=== PATIENT | male | born 1960 | race Caucasian/White ===

== ENCOUNTER 2016-10-16 05:46 | Inpatient (IN) | payer OTHER, MEDICARE ==
[2016-10-16] MEDS ORDERED: MORPHINE 4 MG/ML INJECTION IV ONE (06:26)
[2016-10-16] MEDS ORDERED: ONDANSETRON HCL 4 MG/2 ML VIAL IV ONE ×2 (06:26→08:03)
[2016-10-16] MEDS ORDERED: NS 1,000 ML IV ONE (06:27)
--- NOTE | 2016-10-16 06:37 | EDPRACDOC ---
- General Information Information Source: Patient Mode of Arrival: Car - History of Present Illness Onset: FEW DAYS HPI: PT SAID THAT HE HAS BEEN HAVING BACK AND ABD PAIN. HE HAS HAD SOME HEMATURIA WELL. HIS PCP TOLD HIM THAT HE PROBABLY HAS A KIDNEY STONE. PT SAID THAT HE HAS NOT HAD A CT. PT WOKE UP THIS AM WITH CP WELL. PT HAS A HX OF CAD WITH STENT AND THIS CP FEELS SIMILAR. PT HAS N/V TODAY, BUT WAS ABLE TO KEEP DOWN AN ASA. LOW RISK STRESS TEST APRIL 2016. Chest Pain Location: Reports: Substernal Pain Radiation: Reports: None Symptoms Occur: Reports: Suddenly Cardiac History of: Reports: Similar Pain in Past, [place], Cardiac Cath, Stent PE Risk Factors: Reports: None Medications within 24 Hours: Reports: Aspirin Prehospital Care: Reports: None Pain Status: Present Now Pain Description: Reports: Pressure Pain Severity: Mild Pain Worsens With: Reports: Nothing Associated Signs and Symptoms: Reports: Nausea, Vomiting <Yolanda Kaminski - Last Filed: 10/16/16 07:01> <Shannon Dawkins - Last Filed: 10/16/16 12:29> - General Information Stated Complaint: BACK PAIN/ UPPER LEFT RIB CAGE PAIN Time Seen by Provider: 10/16/16 06:15 Home Medications: Home Medications Aspirin [Aspirin EC] 81 mg PO QAM 10/16/16 Buspirone HCl [Buspar] 30 mg PO BID PRN 10/16/16 Clopidogrel Bisulfate [Plavix] 75 mg PO DAILY 10/16/16 Dexlansoprazole [Dexilant] 60 mg PO DAILY 10/16/16 Oxycodone (OxyCONTIN) Ext Rel [Oxycontin] 20 mg PO Q12H 10/16/16 Allergies/Adverse Reactions: Allergies Allergy/AdvReac Type Severity Reaction Status Date / Time ciprofloxacin [From Cipro] Allergy Intermediate Nausea only Verified 10/16/16 07 :02 ciprofloxacin HCl Allergy Intermediate Nausea only Verified 10/16/16 07:02 [From Cipro] Iodinated Contrast Media - Allergy Intermediate Nausea/Vomi Verified 10/16/16 07 :02 IV Dye ting [IV Dye, Iodine Containing Contrast ] iodine [Iodine] Allergy Intermediate Nausea/Vomi Verified 10/16/16 07:02 ting Penicillins Allergy Intermediate Rash-Genera Verified 10/16/16 07:02 lized lorazepam [From Ativan] Allergy Unknown/See Verified 10/16/16 07:02 Comments ED Past Medical History - Patient Medical History Cardiac History: Reports: Coronary Artery Disease, Hypertension, Cardiac Catheterization Respiratory History: Reports: COPD, Emphysema GI/ History: Reports: Gastroesophageal Reflux Surgical History: Reports: Cardiac Catheterization, Other (HERNIA REPAIR WITH MESH, RELEASE OF SBO) - Family Medical History Reports: Cancer - Social Medical History Smoking Status: Heavy tobacco smoker (5 or more cigarettes/day or daily pipe/ cigar) ETOH: None Substance Abuse: None Lives With: Spouse Lives In: Home <Yolanda Kaminski - Last Filed: 10/16/16 07:01> EDM Review of Systems - Review of Systems ROS Negative Except as Marked: Yes All systems reviewed and were negative except as marked Cardiovascular: Chest Pain Gastrointestinal: Nausea, Pain, Vomiting Genitourinary: Hematuria, Flank Pain <Yolanda Kaminski - Last Filed: 10/16/16 07:01> - Physical Exam Constitutional: Alert (Awake), No apparent distress Oriented to: Time, Person, Place Last recorded Vital Signs: Oxygen Pulse Oxygen Saturation O2 Device Oxygen Flow Rate Fraction of Inspired Oxygen ( FIO2) - HEENT Head: Normal ( normocephalic) Eye Exam: Normal (PERRL, EOMI, Sclera white) Oropharynx: Normal (Pharynx:Moist without exudate,Gums-no swelling) ENT EAC: Normal TMJ: Normal Nose: No Symptoms Reported (septum midline) Neck: Normal (FROM, trachea at midline) - Respiratory/Cardiovascular Respiratory: Normal - CTA (BBS clear to auscultation without adventitious sounds ) Cardiovascular: Normal (RRR without murmur, gallop or rub) - GI Auscultation: Normal (NABS) Palpation: Normal (Soft,No rebound or guarding, non distended) Tenderness: Diffuse, Mild Thomas's Sign: Negative - Musculoskeletal Back: Normal (Non-Tender) Extremities: Normal (Normal tone, Pulses 2+ No cyanosis or edema, FROM) - Integumentary Skin: Normal, Warm, Dry Lymphatics: Normal (no adenopathy) - Neurologic Memory Impaired: Normal Motor Function: Normal (Normal tone, Pulses 2+ No cyanosis or edema, FROM) Cranial Nerve: Normal (CN II-X11 intact sensation, strength 5/5) Cerebellar: Normal Mood Description: Normal Thought: Coherent Perception: Normal <Yolanda Kaminski Julio - Last Filed: 10/16/16 07:01> - Physical Exam Last recorded Vital Signs: Last Vital Signs Temp 98.4 F 10/16/16 06:15 Pulse 100 10/16/16 06:53 Resp 18 10/16/16 06:53 BP 121/75 10/16/16 06:53 Pulse Ox 88 L 10/16/16 06:53 Oxygen Pulse Oxygen Saturation 88 O2 Device Room Air Oxygen Flow Rate Fraction of Inspired Oxygen ( FIO2) <Shannon Dawkins - Last Filed: 10/16/16 12:29> - Action ASA given in the ED: No Aspirin therapy held due to: Other-specify below* (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 <[place]ady[place]anda Julio - Last Filed: 10/16/16 07:01> - Re-evaluation Re-evaluation 1 Re-evaluation Time: 07:55 (CONVOLUTED PICTURE. PATIENT IS EXTREMELY POOR HISTORIAN.) EPISODE OF CHEST PAIN THIS MORNING CAME ON ASSOCIATED WITH COUGHING AND NAUSEA VOMITING. HE GETS CHEST PAIN FREQUENTLY. CARDIAC HISTORY INCLUDES [place] FEBRUARY OF 2016 STATUS POST PCT EYE. HE HAD A REPEAT CARDIAC CATHETERIZATION MONTH LATER FOR PERSISTENT AND ONGOING CHEST PAIN WHICH DEMONSTRATED NOTHING THAT NEEDED CARDIAC INTERVENTION. HE ALSO HAD A STRESS TEST DONE IN APRIL WELL WHICH WAS WITHIN NORMAL LIMITS WELL. PATIENT HAS HAD MID BACK PAIN FOR APPROXIMATELY 2 WEEKS. IT IS AGGRAVATED BY MOVEMENT IS ALLEVIATED BY CERTAIN POSITIONS IS ASSOCIATED WITH SOME HEMATURIA. PATIENT THOUGHT HE HAD KIDNEY STONES. HE EVEN THINKS THE PAST 1 OR 2. HOWEVER DID NOT RELIEVE HIS PAIN. HE HAS HAD PAIN LIKE THIS BEFORE BUT HAS NEVER BEEN THIS BAD BEFORE. HE TAKES OXYCONTIN DAILY HOWEVER THIS IS FOR CHRONIC LEG PAIN. BUT HIS MEDICAL RECORDS DEMONSTRATE HISTORY FOR LUMBAR RADICULOPATHY. General: Pleasant MALE, SLEEP No acute distress. Neuro: Alert Oriented, calm and cooperative HEENT: Normocephalic atraumatic. Sclerae nonicteric. Extraocular movements intact. Oral mucosa pink and moist. Neck: Supple. Nontender. Good range of motion. No masses. Trachea is midline. No cervical adenopathy. Lungs: Clear to auscultation. No rhonchi or wheezing. Heart: Regular rate and rhythm. No murmur. Abdomen: Soft, nontender, nondistended. No hepatosplenomegaly. No abdominal wall defects or masses. No guarding or rebound. Extremities: no cyanosis clubbing or edema. No palpable deformities. Skin: Warm and dry, no rashes OXYGENATION SOMEWHAT DECREASED. ASSOCIATED WITH THE MIDBACK PAIN. WILL DD AT THIS TIME AND TREAT FOR COPD. Re-evaluation 3 Re-evaluation Time: 12:28 (PERSISTENT HYPOXIA DESPITE AMPLE TIME FOR NARCOTICS TO WEAR OFF AND NEBULIZER TREATMENT. POSSIBLY RELATED TO ASPIRATION THIS MORNING WITH NAUSEA VOMITING.) - Results 10/16/16 06:47 10/16/16 06:47 WBC 7.9 xk/uL (3.8-10.8) 10/16/16 06:47 RBC 4.73 xM/uL (4.70-6.10) 10/16/16 06:47 Hgb 15.0 g/dL (14.0-18.0) 10/16/16 06:47 Hct 41.8 % (42-52) L 10/16/16 06:47 MCV 88 fL (80-94) 10/16/16 06:47 MCH 31.8 pg (27-32) 10/16/16 06:47 MCHC 35.9 g/dl (33-36) 10/16/16 06:47 RDW 15.3 % (11.5-14.5) H 10/16/16 06:47 Plt Count 160 xk/uL (130-400) 10/16/16 06:47 MPV 8.6 fL (7.4-10.4) 10/16/16 06:47 Neut % (Auto) 68.4 % (45-76) 10/16/16 06:47 Lymph % (Auto) 15.0 % (17-44) L 10/16/16 06:47 [place] % (Auto) 15.2 % (3-10) H 10/16/16 06:47 Eos % (Auto) 0.7 % (0-5) 10/16/16 06:47 Baso % (Auto) 0.7 % (0-2) 10/16/16 06:47 Absolute Neuts (auto) 5.37 xk/uL (1.7-8.2) 10/16/16 06:47 Absolute Lymphs (auto) 1.19 xk/uL (0.65-4.75) 10/16/16 06:47 PT 11.2 SEC (9.2-11.2) 10/16/16 06:47 INR 1.1 10/16/16 06:47 APTT 24.0 SEC (22-35) 10/16/16 06:47 Sodium 137 mEq/L (137-146) 10/16/16 06:47 Potassium 4.1 mEq/L (3.5-5.1) 10/16/16 06:47 Chloride 99 mEq/L (98-107) 10/16/16 06:47 Carbon Dioxide 27 mMOL/L (22-33) 10/16/16 06:47 Anion Gap 15 mEq/L (8-16) 10/16/16 06:47 BUN 12 MG/DL (9-20) 10/16/16 06:47 Creatinine 1.50 MG/DL (0.66-1.25) H 10/16/16 06:47 Estimated GFR (MDRD) 49 mL/min (>=60) L 10/16/16 06:47 Glucose 105 MG/DL (70-99) H 10/16/16 06:47 Calculated Osmolality 264 MOs/Kg (270-290) L 10/16/16 06:47 Calcium 9.4 MG/DL (8.4-10.2) 10/16/16 06:47 Total Bilirubin 1.4 MG/DL (0.2-1.3) H 10/16/16 06:47 AST 25 IU/L (17-59) 10/16/16 06:47 ALT 24 IU/L (21-72) 10/16/16 06:47 Alkaline Phosphatase 83 IU/L (38-126) 10/16/16 06:47 Troponin I < 0.01 ng/mL (<.04) 10/16/16 06:47 Total Protein 8.4 G/DL (6.3-8.2) H 10/16/16 06:47 Albumin 4.5 G/DL (3.5-5.0) 10/16/16 06:47 Lab Results 10/16/16 10/16/16 10/16/16 06:47 06:47 06:47 WBC 7.9 RBC 4.73 Hgb 15.0 Hct 41.8 L MCV 88 MCH 31.8 MCHC 35.9 RDW 15.3 H Plt Count 160 MPV 8.6 Neut % (Auto) 68.4 Lymph % (Auto) 15.0 L [place] % (Auto) 15.2 H Eos % (Auto) 0.7 Baso % (Auto) 0.7 Absolute Neuts (auto) 5.37 Absolute Lymphs (auto) 1.19 PT 11.2 INR 1.1 APTT 24.0 Sodium 137 Potassium 4.1 Chloride 99 Carbon Dioxide 27 Anion Gap 15 BUN 12 Creatinine 1.50 H Estimated GFR (MDRD) 49 L Glucose 105 H Calculated Osmolality 264 L Calcium 9.4 Total Bilirubin 1.4 H AST 25 ALT 24 Alkaline Phosphatase 83 Troponin I < 0.01 Total Protein 8.4 H Albumin 4.5 Laboratory Results - last 24 hr 10/16/16 10/16/16 10/16/16 06:47 06:47 06:47 WBC 7.9 RBC 4.73 Hgb 15.0 Hct 41.8 L MCV 88 MCH 31.8 MCHC 35.9 RDW 15.3 H Plt Count 160 MPV 8.6 Neut % (Auto) 68.4 Lymph % (Auto) 15.0 L [place] % (Auto) 15.2 H Eos % (Auto) 0.7 Baso % (Auto) 0.7 Absolute Neuts (auto) 5.37 Absolute Lymphs (auto) 1.19 PT 11.2 INR 1.1 APTT 24.0 Sodium 137 Potassium 4.1 Chloride 99 Carbon Dioxide 27 Anion Gap 15 BUN 12 Creatinine 1.50 H Estimated GFR (MDRD) 49 L Glucose 105 H Calculated Osmolality 264 L Calcium 9.4 Total Bilirubin 1.4 H AST 25 ALT 24 Alkaline Phosphatase 83 Troponin I < 0.01 Total Protein 8.4 H Albumin 4.5 Laboratory Results 10/16/16 06:47 10/16/16 06:47 - Diagnostic Imaging Chest Patient Name: RUSTY SLATER LOC: ED : 1960 AGE: 56 Order Date:10/16/16 Date of Service: Report # [id number] Ord Physician: Yolanda Kaminski MD Exam # [id number] Emergency Physician: Yolanda Kaminski MD Exam(s): [id number] RAD/DG CHEST PORTABLE CLINICAL DATA: Chest pain this morning EXAM: PORTABLE CHEST 1 VIEW COMPARISON: 09/01/2016 FINDINGS: Emphysematous changes at the apices, confirmed at the bases on [address] Mild interstitial coarsening at the bases. There is no edema, consolidation, effusion, or pneumothorax. Normal heart size and aortic contours. IMPRESSION: Emphysema without acute superimposed finding. Electronically Signed By: Nicola Douglas M.D. On: 10/16/2016 06:52 Electronically Signed By: Willis Douglas MD Electronically Signed Date/Time: [id number] Dictate Date/Time: 10/16/16 0651 Technologist: Alessandra Vasquez Transcribed By: Alan Transcribed Date/Time: 10/16/16 0652 Abdomen Image interpreted by: Radiologist Patient Name: RUSTY SLATER LOC: ED : 1960 AGE: 56 Order Date:10/16/16 Date of Service: Report # [id number] Ord Physician: Yolanda Kaminski MD Exam # [id number] Emergency Physician: Yolanda Kaminski MD Exam(s): [id number] CT/CT UROGRAM CLINICAL DATA: Left flank pain left back pain with hematuria for 1 day EXAM: CT ABDOMEN AND PELVIS WITHOUT CONTRAST TECHNIQUE: Multidetector CT imaging of the abdomen and pelvis was performed following the standard protocol without IV contrast. COMPARISON: 08/13/2014 FINDINGS: Lower chest: 5 cm bleb anterior medial left lung base unchanged. Small hiatal hernia. Hepatobiliary: Status post cholecystectomy Pancreas: Normal Spleen: Normal Adrenals/Urinary Tract: Normal. Bladder is decompressed. Stomach/Bowel: Nonobstructive bowel gas pattern. Fecal retention throughout the colon. Again identified is the fact that there is fatty infiltration in the wall the appendix. This is also noted within the cecum as it was previously as well as distal small bowel. Vascular/Lymphatic: Moderate aortoiliac calcification. No significant adenopathy. Reproductive: Norm Other: No ascites Musculoskeletal: No acute findings no acute abnormalities. No findings to account for the patient's symptoms. IMPRESSION: No acute abnormalities to account for the patient's symptoms. Incidentally noted is fatty infiltration in the wall of the appendix, distal small bowel, and proximal large bowel. This is stable. Electronically Signed By: Benton Siddiqi M.D. On: 10/16/2016 07:23 Electronically Signed By: Benton Siddiqi MD Electronically Signed Date/Time: [id number] Dictate Date/Time: 10/16/16716 Technologist: Bahman Dyer Transcribed By: Alan Transcribed Date/Time: 10/16/1623 <Shannon Dawkins - Last Filed: 10/16/16 12:29> <Yolanda Kaminski - Last Filed: 10/16/16 07:01> - Departure Disposition: Admit IP To This Hospital Education/Counseling Given To: Patient, Family Member Education/Counseling Given Regarding: Diagnosis, Treatment, Prognosis Decision to Admit Time: 12:28 Decision to admit date: 10/16/16 Decision to admit: from ED - Physician Consulted Hospitalist Time Called: 12:28 Provider Called: Liam Cantu Time Supervisor [employer] Returned Call: 12:28 <Shannon Dawkins - Last Filed: 10/16/16 12:29> - Departure Condition: Stable Final Diagnosis: Atypical chest pain, Aspiration pneumonitis, Hypoxia Back pain Qualifiers: Back pain location: thoracic back pain Chronicity: acute Back pain laterality: midline Qualified Code(s): M54.6 - Pain in thoracic spine Instructions: Chest Pain (ED), Core Strengthening Exercises (GEN), Back Pain, Chest Wall Pain Referrals: None,No Provider [Primary Care Provider] - One Week Prescriptions: No Action Dexlansoprazole [Dexilant] 60 mg PO DAILY Oxycodone (OxyCONTIN) Ext Rel [Oxycontin] 20 mg PO Q12H Clopidogrel Bisulfate [Plavix] 75 mg PO DAILY Aspirin [Aspirin EC] 81 mg PO QAM Buspirone HCl [Buspar] 30 mg PO BID PRN PRN Reason: ANXIETY ATTACK Additional Instructions: CONTINUE CURRENT MEDS
--- NOTE | 2016-10-16 06:55 | DIRPT ---
CLINICAL DATA: Chest pain this morning EXAM: PORTABLE CHEST 1 VIEW COMPARISON: 09/01/2016 FINDINGS: Emphysematous changes at the apices, confirmed at the bases on [address] Mild interstitial coarsening at the bases. There is no edema, consolidation, effusion, or pneumothorax. Normal heart size and aortic contours. IMPRESSION: Emphysema without acute superimposed finding. Electronically Signed By: Nicola Douglas M.D. On: 10/16/2016 06:52
[2016-10-16 07:08] LABS: AUTOMATED BASOPHIL 0.7 % (0-2); AUTOMATED EOSINOPHIL 0.7 % (0-5); AUTOMATED MONOCYTE 15.2 % (3-10); AUTOMATED NEUTROPHIL 68.4 % (45-76); MPV 8.6 fL (7.4-10.4)
[2016-10-16 07:17] LABS: PT-INR 1.1
[2016-10-16 07:18] LABS: BLOOD UREA NITROGEN 12 MG/DL (9-20); CALCIUM 9.4 MG/DL (8.4-10.2); CALCULATED OSMOLALITY 264 MOs/Kg (270-290); CHLORIDE 99 mEq/L (98-107); GLUCOSE 105 MG/DL (70-99); SODIUM LEVEL 137 mEq/L (137-146); TOTAL PROTEIN 8.4 G/DL (6.3-8.2)
[2016-10-16 07:26] LABS: LEUKOCYTES/URINE NEG (NEGATIVE); NITRITE/URINE NEG (NEGATIVE); RBC/URINE 0-2 (0-2); URINE OCCULT BLOOD 1+ (NEG/TRACE); WBC/URINE 0-2 (0-2)
--- NOTE | 2016-10-16 07:26 | DIRPT ---
CLINICAL DATA: Left flank pain left back pain with hematuria for 1 day EXAM: CT ABDOMEN AND PELVIS WITHOUT CONTRAST TECHNIQUE: Multidetector CT imaging of the abdomen and pelvis was performed following the standard protocol without IV contrast. COMPARISON: 08/13/2014 FINDINGS: Lower chest: 5 cm bleb anterior medial left lung base unchanged. Small hiatal hernia. Hepatobiliary: Status post cholecystectomy Pancreas: Normal Spleen: Normal Adrenals/Urinary Tract: Normal. Bladder is decompressed. Stomach/Bowel: Nonobstructive bowel gas pattern. Fecal retention throughout the colon. Again identified is the fact that there is fatty infiltration in the wall the appendix. This is also noted within the cecum as it was previously as well as distal small bowel. Vascular/Lymphatic: Moderate aortoiliac calcification. No significant adenopathy. Reproductive: Norm Other: No ascites Musculoskeletal: No acute findings no acute abnormalities. No findings to account for the patient's symptoms. IMPRESSION: No acute abnormalities to account for the patient's symptoms. Incidentally noted is fatty infiltration in the wall of the appendix, distal small bowel, and proximal large bowel. This is stable. Electronically Signed By: Benton Siddiqi M.D. On: 10/16/2016 07:23
[2016-10-16] MEDS ORDERED: METHYLPREDNISOLONE 125 MG/2 ML VIAL IV ONE (08:00)
[2016-10-16] MEDS ORDERED: Albuterol/Ipratropium Neb 3 ML NEB NEB ONE ×2 (08:00→11:40)
--- NOTE | 2016-10-16 08:38 | DIRPT ---
CLINICAL DATA: Shortness of breath. Abdominal pain. EXAM: CHEST 2 VIEW COMPARISON: 10/16/2016 FINDINGS: Hazy bilateral lower lobe airspace disease which may reflect atelectasis versus pneumonia. There is no pleural effusion or pneumothorax. The heart and mediastinal contours are unremarkable. The osseous structures are unremarkable. IMPRESSION: Hazy bibasilar airspace disease which may reflect atelectasis versus pneumonia. Followup PA and lateral chest X-ray is recommended in 3-4 weeks following trial of antibiotic therapy to ensure resolution and exclude underlying malignancy. Electronically Signed By: Clary Lorenzo On: 10/16/2016 08:35
[2016-10-16 11:56] LABS: ALLEN'S TEST PASS; TCO2 26.4 MMOL/L (23-27)
[2016-10-16 11:57] LABS: ABG Draw Site Left Radial
[2016-10-16] MEDS ORDERED: Clindamycin 600 mg/D5W 50 ml 600 MG/50 ML IVB IV ONE (12:30)
[2016-10-16] MEDS ORDERED: BUSPIRONE 10 MG TAB PO PRN (12:39)
[2016-10-16] MEDS ORDERED: MAGNESIUM HYDROXIDE 30 ML BOTTLE PO PRN (12:49)
[2016-10-16] MEDS ORDERED: TEMAZEPAM 15 MG CAP PO PRN (12:49)
[2016-10-16] MEDS ORDERED: SODIUM CHLORIDE 0.9% 3 ML FLUSH FLUSH PRN (12:49)
[2016-10-16] MEDS ORDERED: TUSSIONEX 5 ML ORAL SYRINGE PO PRN (12:49)
[2016-10-16] MEDS ORDERED: ALBUTEROL 0.083% 3 ML NEB NEB PRN (12:49)
[2016-10-16] MEDS ORDERED: Aluminum;Magnesium;Simethicone 30 ML UDC PO PRN (12:49)
--- NOTE | 2016-10-16 12:54 | HISTPHYS ---
- Chief Complaint Hypoxemia with acute pneumonia - History of Present Illness PT SAID THAT HE HAS BEEN HAVING BACK AND ABD PAIN. HE HAS HAD SOME HEMATURIA WELL. HIS PCP TOLD HIM THAT HE PROBABLY HAS A KIDNEY STONE. PT SAID THAT HE HAS NOT HAD A CT. PT WOKE UP THIS AM WITH CP WELL. PT HAS A HX OF CAD WITH STENT AND THIS CP FEELS SIMILAR. PT HAS N/V TODAY, BUT WAS ABLE TO KEEP DOWN AN ASA. LOW RISK STRESS TEST APRIL 2016. Chest Pain Location: Reports: Substernal Pain Radiation: Reports: None Symptoms Occur: Reports: Suddenly Cardiac History of: Reports: Similar Pain in Past, [place], Cardiac Cath, Stent PE Risk Factors: Reports: None Medications within 24 Hours: Reports: Aspirin Prehospital Care: Reports: None Pain Status: Present Now Pain Description: Reports: Pressure Pain Severity: Mild Pain Worsens With: Reports: Nothing Associated Signs and Symptoms: Reports: Nausea, Vomiting EPISODE OF CHEST PAIN THIS MORNING CAME ON ASSOCIATED WITH COUGHING AND NAUSEA VOMITING. HE GETS CHEST PAIN FREQUENTLY. CARDIAC HISTORY INCLUDES [place] FEBRUARY OF 2016 STATUS POST PCT EYE. HE HAD A REPEAT CARDIAC CATHETERIZATION MONTH LATER FOR PERSISTENT AND ONGOING CHEST PAIN WHICH DEMONSTRATED NOTHING THAT NEEDED CARDIAC INTERVENTION. HE ALSO HAD A STRESS TEST DONE IN April WHICH WAS WITHIN NORMAL LIMITS WELL. PATIENT HAS HAD MID BACK PAIN FOR APPROXIMATELY 2 WEEKS. IT IS AGGRAVATED BY MOVEMENT IS ALLEVIATED BY CERTAIN POSITIONS IS ASSOCIATED WITH SOME HEMATURIA. PATIENT THOUGHT HE HAD KIDNEY STONES. HE EVEN THINKS THE PAST 1 OR 2. HOWEVER DID NOT RELIEVE HIS PAIN. HE HAS HAD PAIN LIKE THIS BEFORE BUT HAS NEVER BEEN THIS BAD BEFORE. HE TAKES OXYCONTIN DAILY HOWEVER THIS IS FOR CHRONIC LEG PAIN. BUT HIS MEDICAL RECORDS DEMONSTRATE HISTORY FOR LUMBAR RADICULOPATHY. After having significant vomiting this morning in the emergency department the patient's pulmonary status declined. A repeat chest x-ray was obtained and he was found to have pneumonia. He will be admitted into the hospital for treatment of aspiration pneumonia. The patient has had multiple large workup for chest pain I believe he is a patient with chronic chest pain without coronary symptoms or disease. - Medical History Cardiac History: Reports: Coronary Artery Disease, Hypertension, Cardiac Catheterization Respiratory History: Reports: COPD, Emphysema GI/ History: Reports: Gastroesophageal Reflux - Surgical History Reports: Cardiac Catheterization, Other (HERNIA REPAIR WITH MESH, RELEASE OF SBO ) - Medictions/Allergies Allergies ciprofloxacin [From Cipro] Allergy (Intermediate, Verified 10/16/16 07:02) Nausea only ciprofloxacin HCl [From Cipro] Allergy (Intermediate, Verified 10/16/16 07:02) Nausea only Iodinated Contrast Media - IV Dye [IV Dye, Iodine Containing Contrast ] Allergy (Intermediate, Verified 10/16/16 07:02) Nausea/Vomiting NAUSEA AND RASH iodine [Iodine] Allergy (Intermediate, Verified 10/16/16 07:02) Nausea/Vomiting ALLERGIC TO IVP DYE - CAUSES RASH AND NAUSEA Penicillins Allergy (Intermediate, Verified 10/16/16 07:02) Rash-Generalized RASH & NAUSEA lorazepam [From Ativan] Allergy (Verified 10/16/16 07:02) Unknown/See Comments "MAKES ME CRAZY" Home Medications Aspirin [Aspirin EC] 81 mg PO QAM 10/16/16 Buspirone HCl [Buspar] 30 mg PO BID PRN 10/16/16 Clopidogrel Bisulfate [Plavix] 75 mg PO DAILY 10/16/16 Dexlansoprazole [Dexilant] 60 mg PO DAILY 10/16/16 Oxycodone (OxyCONTIN) Ext Rel [Oxycontin] 20 mg PO Q12H 10/16/16 - Family History Reports: Cancer - Social History Travel Outside of [place] in the Last 3 Months?: No Smoking Status: Heavy tobacco smoker (5 or more cigarettes/day or daily pipe/ cigar) Social History: Denies: Alcohol Use - Review of Systems Constitutional: negative: Chills, Fever Eyes: negative: Blurred Vision, Double Vision, Discharge Ears: negative: Drainage, Ear Pulling Nose: No Symptoms Reported (No nasal discharge/congestion or bleeding) Mouth: No Symptoms Reported (No oropharyngeal lesions or erythema) Throat/Neck: No Symptoms Reported (No throat pain or swelling.No oropharyngeal lesions or erythema.) Respiratory: Cough, Shortness of Breath Cardiovascular: Chest Pain (Intermittent and chronic). negative: Palpitations Gastrointestinal: Nausea, Vomiting, Abdominal Pain Genitourinary: No Symptoms Reported (No dysuria or hematuria.) Neurological: No Symptoms Reported (No headache, dizziness, seizures, or focal weakness.) Musculoskeletal:: No Symptoms Reported Integumentary: No Symptoms Reported Allergic/Immunologic: No Symptoms Reported Hematologic: No Symptoms Reported Endocrine: No Symptoms Reported (No thyroid issues, polyuria, or polydipsia.) Psychiatric: No Symptoms Reported (Fully oriented, with normal and appropriate affect.) - Physical Exam Vital Signs: Initial Vitals Temperature 98.4 F 10/16/16 06:15 Pulse Rate 123 H 10/16/16 06:15 Respiratory Rate 20 10/16/16 06:15 Blood Pressure 112/68 10/16/16 06:15 Pulse Oxygen Saturation 94 10/16/16 06:15 Constitutional: Alert, Well nourished, Well appearing. negative: Confused, Distress Oriented to: Time, Person, Place - HEENT Head: Normal (normocephalic, atraumatic.), Other (No cervical lymphadenopathy. No supraclavicular lymphadenopathy. Neck: No palpable mass, supple , trachea midline.) Eye: Normal (pupils equal, reactive to light, and round; EOMI, Sclera white) Oropharynx: Normal (Pharynx: Moist without exudate,Gums-no swelling, No oropharyngeal lesions or erythema, Mucous membranes are dry.) Nose: No Symptoms Reported (septum midline, Nares patent, without discharge or bleeding.) Respiratory: Accessory Muscle Use, Rhonchi. negative: Rales, Wheezes Cardiovascular: Normal (RRR , Normal S1, S2. No murmurs, rubs, or gallops. PMI non-displaced. Carotids: no carotid bruits. No bradycardia or tachycardia. DP pulses 2+ bilaterally.) - GI Auscultation: Normal (normal active sounds) Palpation: Normal (Soft,non distended,nontender. No hepatosplenomegaly.) Tenderness: Non tender (No rebound or guarding) Thomas's Sign: Negative - Musculoskeletal Back: Normal (Non-Tender) Extremities: Normal (Normal tone, DP pulses 2+ bilaterally, No cyanosis or edema bilaterally, FROM bilaterally.) - Integumentary Skin: Normal (Clean, dry, and intact. No rashes. No lesions.) Lymphatics: Normal (No cervical lymphadenopathy. No supraclavicular lymphadenopathy.) - Neurologic Memory Impaired: Normal Motor Function: Normal (Motor 5/5 throughout.Normal tone, Pulses 2+ No cyanosis or edema, FROM) Cranial Nerve: Normal (CN II-XII intact sensation, strength 5/5) Cerebellar: Normal (Babinski: toes downgoing bilaterally. Intact Finger to nose. Sensory grossly intact to light touch. Intact rapid alternating movements bilaterally. No pronator drift.) Mood Description: Normal (Fully oriented. Normal and appropriate affect.) Perception: Normal (Normal and appropriate affect.) - Focused CV Perfusion Exam Vital Signs: Last Vital Signs Temp 98.4 F 10/16/16 06:15 Pulse 87 10/16/16 08:12 Resp 18 10/16/16 08:12 BP 117/82 10/16/16 08:12 Pulse Ox 94 10/16/16 12:19 - Lab Results Laboratory Results - last 24 hr 10/16/16 10/16/16 10/16/16 06:39 06:47 06:47 WBC 7.9 RBC 4.73 Hgb 15.0 Hct 41.8 L MCV 88 MCH 31.8 MCHC 35.9 RDW 15.3 H Plt Count 160 MPV 8.6 Neut % (Auto) 68.4 Lymph % (Auto) 15.0 L [place] % (Auto) 15.2 H Eos % (Auto) 0.7 Baso % (Auto) 0.7 Absolute Neuts (auto) 5.37 Absolute Lymphs (auto) 1.19 PT INR APTT D-Dimer Quant (PE/DVT) Puncture Site pH pCO2 pO2 HCO3 Total CO2 Base Excess FiO2 % Specimen Drawn By Sodium 137 Potassium 4.1 Chloride 99 Carbon Dioxide 27 Anion Gap 15 BUN 12 Creatinine 1.50 H Estimated GFR (MDRD) 49 L Glucose 105 H Calculated Osmolality 264 L Calcium 9.4 Total Bilirubin 1.4 H AST 25 ALT 24 Alkaline Phosphatase 83 Troponin I < 0.01 Total Protein 8.4 H Albumin 4.5 Urine Color Yellow Urine Clarity Clear Urine pH 5.0 Ur Specific [place] 1.030 Urine Protein 1+ H Urine Glucose (UA) Neg Urine Ketones Neg Urine Occult Blood 1+ H Urine Nitrite Neg Urine Bilirubin Neg Urine Urobilinogen <2.0 Ur Leukocyte Esterase Neg Urine RBC 0-2 Urine WBC 0-2 Ur Epithelial Cells Occ Urine Bacteria 2+ H Hyaline Casts 0-2 Urine Mucus Mod H 10/16/16 10/16/16 10/16/16 06:47 09:00 09:00 WBC RBC Hgb Hct MCV MCH MCHC RDW Plt Count MPV Neut % (Auto) Lymph % (Auto) Kim[place] % (Auto) Eos % (Auto) Baso % (Auto) Absolute Neuts (auto) Absolute Lymphs (auto) PT 11.2 INR 1.1 APTT 24.0 D-Dimer Quant (PE/DVT) 630 H Puncture Site pH pCO2 pO2 HCO3 Total CO2 Base Excess FiO2 % Specimen Drawn By Sodium Potassium Chloride Carbon Dioxide Anion Gap BUN Creatinine Estimated GFR (MDRD) Glucose Calculated Osmolality Calcium Total Bilirubin AST ALT Alkaline Phosphatase Troponin I < 0.01 Total Protein Albumin Urine Color Urine Clarity Urine pH Ur Specific [place] Urine Protein Urine Glucose (UA) Urine Ketones Urine Occult Blood Urine Nitrite Urine Bilirubin Urine Urobilinogen Ur Leukocyte Esterase Urine RBC Urine WBC Ur Epithelial Cells Urine Bacteria Hyaline Casts Urine Mucus 10/16/16 11:45 WBC RBC Hgb Hct MCV MCH MCHC RDW Plt Count MPV Neut % (Auto) Lymph % (Auto) [place] % (Auto) Eos % (Auto) Baso % (Auto) Absolute Neuts (auto) Absolute Lymphs (auto) PT INR APTT D-Dimer Quant (PE/DVT) Puncture Site Left radial pH 7.430 pCO2 38.0 pO2 56.0 L HCO3 25.2 Total CO2 26.4 Base Excess 1.0 FiO2 % 21% Specimen Drawn By Stana Sodium Potassium Chloride Carbon Dioxide Anion Gap BUN Creatinine Estimated GFR (MDRD) Glucose Calculated Osmolality Calcium Total Bilirubin AST ALT Alkaline Phosphatase Troponin I Total Protein Albumin Urine Color Urine Clarity Urine pH Ur Specific [place] Urine Protein Urine Glucose (UA) Urine Ketones Urine Occult Blood Urine Nitrite Urine Bilirubin Urine Urobilinogen Ur Leukocyte Esterase Urine RBC Urine WBC Ur Epithelial Cells Urine Bacteria Hyaline Casts Urine Mucus - Diagnostic Findings CHEST 2 VIEW COMPARISON: 10/16/2016 FINDINGS: Hazy bilateral lower lobe airspace disease which may reflect atelectasis versus pneumonia. There is no pleural effusion or pneumothorax. The heart and mediastinal contours are unremarkable. The osseous structures are unremarkable. IMPRESSION: Hazy bibasilar airspace disease which may reflect atelectasis versus pneumonia. Followup PA and lateral chest X-ray is recommended in 3-4 weeks following trial of antibiotic therapy to ensure resolution and exclude underlying malignancy. Electronically Signed By: Clary Lorenzo On: 10/16/2016 08:35 EXAM: CT ABDOMEN AND PELVIS WITHOUT CONTRAST TECHNIQUE: Multidetector CT imaging of the abdomen and pelvis was performed following the standard protocol without IV contrast. COMPARISON: 08/13/2014 FINDINGS: Lower chest: 5 cm bleb anterior medial left lung base unchanged. Small hiatal hernia. Hepatobiliary: Status post cholecystectomy Pancreas: Normal Spleen: Normal Adrenals/Urinary Tract: Normal. Bladder is decompressed. Stomach/Bowel: Nonobstructive bowel gas pattern. Fecal retention throughout the colon. Again identified is the fact that there is fatty infiltration in the wall the appendix. This is also noted within the cecum as it was previously as well as distal small bowel. Vascular/Lymphatic: Moderate aortoiliac calcification. No significant adenopathy. Reproductive: Norm Other: No ascites Musculoskeletal: No acute findings no acute abnormalities. No findings to account for the patient's symptoms. IMPRESSION: No acute abnormalities to account for the patient's symptoms. Incidentally noted is fatty infiltration in the wall of the appendix, distal small bowel, and proximal large bowel. This is stable. Electronically Signed By: Benton Siddiqi M.D. On: 10/16/2016 07:23 - Assessment (1) Aspiration pneumonitis J69.0 - PNEUMONITIS DUE TO INHALATION OF FOOD AND VOMIT Acute Present on Admission: Yes Patient likely developed an aspiration pneumonia associated with his significant nausea and vomiting. He will be admitted into the hospital started on IV antibiotics and treated for respiratory problems. (2) Nausea & vomiting R11.2 - NAUSEA WITH VOMITING, UNSPECIFIED Acute Present on Admission: Yes Qualifiers: Vomiting type: bilious vomiting Vomiting Intractability: V Qualified Code (s): R11.14 - Bilious vomiting Probable gastroenteritis which prompted vomiting which brought on aspiration pneumonia. Patient has not vomited in the emergency department. Will admit and provide antiemetics and IV fluids. (3) Atypical chest pain R07.89 - OTHER CHEST PAIN Chronic Present on Admission: Yes This is chronic and intermittent patient has had cardiac catheterizations and stress tests and has not had any recent interventions due to normal testing. I do not believe that his chest pain is cardiac in origin. (4) Hypoxia R09.02 - HYPOXEMIA Acute Present on Admission: Yes Likely related to acute aspiration pneumonia. (5) Back pain M54.9 - DORSALGIA, UNSPECIFIED Chronic Present on Admission: Yes Qualifiers: Back pain location: thoracic back pain Chronicity: chronic Back pain laterality: midline Sciatica presence: S Sciatica laterality: S Qualified Code(s): M54.6 - Pain in thoracic spine; G89.29 - Other chronic pain Patient has had a history of back pain will monitor closely. - Plan Admit treat aspiration pneumonia monitor closely. Case Care Discussed with: Patient, Nursing Staff Total Time: 55 minutes Critical Care: No Couseling Time (>50% in counseling/coordination): No
[2016-10-16] MEDS ORDERED: OXYCODONE (OxyCONTIN) 20 MG TAB PO SCH (13:00)
[2016-10-16] MEDS ORDERED: Vaccine Screening Complete SCH (15:00)
[2016-10-16] MEDS: CEFTRIAXONE 1 GM in D5W 100 ML IV SCH (15:00)
[2016-10-16] MEDS: Albuterol/Ipratropium Neb 3 ML NEB NEB SCH ×2 (15:16→20:08)
[2016-10-16] MEDS: NS 1,000 ML IV SCH (15:30)
[2016-10-16] MEDS: Levofloxacin 750 mg/150 ml D5W 750 MG/150 ML RTU IV SCH (15:31)
[2016-10-16] MEDS: SODIUM CHLORIDE 0.9% 3 ML FLUSH FLUSH SCH (16:27)
[2016-10-16] MEDS ORDERED: ENOXAPARIN 60 MG/0.6 ML PFS SQ SCH (18:00)
[2016-10-16] MEDS: ACETAMINOPHEN 325 MG/TAB TABLET PO PRN (18:50)
[2016-10-17] MEDS: NS 1,000 ML IV SCH (00:57)
[2016-10-17] MEDS: Albuterol/Ipratropium Neb 3 ML NEB NEB SCH ×4 (02:23→20:15)
[2016-10-17] MEDS: PANTOPRAZOLE 40 MG TAB PO SCH (04:17)
[2016-10-17] MEDS: OXYCODONE (OxyCONTIN) 20 MG TAB PO SCH ×2 (04:17→16:17)
[2016-10-17] MEDS: CLOPIDOGREL 75 MG TAB PO SCH (04:18)
[2016-10-17] MEDS: SODIUM CHLORIDE 0.9% 3 ML FLUSH FLUSH SCH ×2 (04:18→16:18)
[2016-10-17 05:33] LABS: ALLEN'S TEST PASS; BEb -1.7 (+/- 2); TCO2 23.1 MMOL/L (23-27)
[2016-10-17 05:34] LABS: ABG Draw Site Left Brachial
[2016-10-17] MEDS: ONDANSETRON HCL 4 MG/2 ML VIAL IV PRN ×3 (05:39→19:59)
[2016-10-17 05:53] LABS: AUTOMATED BASOPHIL 0.1 % (0-2); AUTOMATED LYMPH 10.1 % (17-44); AUTOMATED MONOCYTE 9.5 % (3-10); AUTOMATED NEUTROPHIL 80.3 % (45-76); MPV 8.7 fL (7.4-10.4)
[2016-10-17] MEDS ORDERED: PANTOPRAZOLE 40 MG TAB PO SCH (06:00)
[2016-10-17 06:22] LABS: BLOOD UREA NITROGEN 13 MG/DL (9-20); CALCIUM 8.9 MG/DL (8.4-10.2); CALCULATED OSMOLALITY 269 MOs/Kg (270-290); CHLORIDE 103 mEq/L (98-107); GLUCOSE 151 MG/DL (70-99); SODIUM LEVEL 138 mEq/L (137-146)
--- NOTE | 2016-10-17 07:30 | DIRPT ---
CLINICAL DATA: Pneumonia . EXAM: PORTABLE CHEST 1 VIEW COMPARISON: 10/16/2016 FINDINGS: Mediastinum hilar structures normal. Stable cardiomegaly. Persistent low lung volumes with bibasilar atelectasis and/or infiltrates, slight improvement from prior exam. No pleural effusion or pneumothorax. IMPRESSION: 1. Stable cardiomegaly. 2. Persistent low lung volumes with mild bibasilar atelectasis and/or infiltrates, slight improvement from prior exam. Electronically Signed By: Liam Tang On: 10/17/2016 07:28
[2016-10-17] MEDS ORDERED: FLU VACCINE (Afluria) 0.5 ML DOSE IM ONE (08:00)
--- NOTE | 2016-10-17 08:56 | GENMEDPROG ---
Chief Complaint: Bilateral pneumonia, possible aspiration Subjective Note: Resting comfortably this morning, still on supplemental oxygen. Says that his chest pain and back pain her much improved this morning. No fevers or chills or nausea. Still quite hypoxic and short of breath with coughing fits with exertion. Currently: Reports: Cough, Wheezing, LA, SOB DVT Prophylaxis: Yes - Physical Examination Vital Signs and I&O: Last Vital Signs Temp 98.2 F 10/17/16 08:14 Pulse 81 10/17/16 08:14 Resp 18 10/17/16 08:14 BP 101/61 10/17/16 08:14 Pulse Ox 95 10/17/16 08:14 Oxygen Pulse Oxygen Saturation 95 O2 Device Nasal Cannula Oxygen Flow Rate 2 Fraction of Inspired Oxygen ( 29 FIO2) Intake & Output 10/15/16 10/16/16 10/17/16 10/18/16 06:59 06:59 06:59 06:59 Intake Total 3567 Output Total 1250 450 Balance 2317 -450 Patient's weight 105.415 kg General: Alert, Oriented x3, Cooperative, Mild distress Neck: Normal Trachea alignment, Normal inspection Lymphatics: Normal (No cervical lymphadenopathy. No supraclavicular lymphadenopathy.) Respiratory: Accessory Muscle Use, Rhonchi. negative: Rales, Wheezes Cardiovascular: Regular rate, No Gallops,Rubs/Murmurs GI: Normal bowel sounds, Soft, Non tender (non distended) Extremities/Musculoskeletal: Other (Normal Tone). negative: Edema, Cyanosis Skin: No rashes, No significant lesion Lab/DI/Studies Reviewed: Laboratory Tests 10/17/16 10/17/16 10/17/16 05:20 05:20 05:25 WBC 7.0 Hgb 13.0 L D Hct 37.1 L pH 7.420 pCO2 34.0 L pO2 69.0 L Potassium 4.0 BUN 13 Creatinine 1.00 - Assessment (1) Aspiration pneumonitis Acute J69.0 - PNEUMONITIS DUE TO INHALATION OF FOOD AND VOMIT Comment/Plan: Patient likely developed an aspiration pneumonia associated with his significant nausea and vomiting. The patient feels that his nausea vomiting caused by his significant coughing fits. He has been admitted to the hospital due to suspicion of aspiration pneumonia given his aforementioned symptoms as well as abnormal chest x-ray. Treat for aspiration pneumonia empirically with IV Levaquin and Rocephin. He also has a history of COPD, with some evidence of exacerbation so he will be on steroid burst and taper, as well as scheduled and p.r.n. bronchodilators and mucolytics. (2) Atypical chest pain Chronic R07.89 - OTHER CHEST PAIN Comment/Plan: This is chronic and intermittent patient has had cardiac catheterizations and stress tests and has not had any recent interventions due to normal testing. I do not believe that his chest pain is cardiac in origin. (3) COPD exacerbation Acute J44.1 - CHRONIC OBSTRUCTIVE PULMONARY DISEASE W (ACUTE) EXACERBATION Comment/Plan: Patient has a history of COPD and emphysema due to his long history of smoking. He is no longer an abuser of tobacco products. Will treat empirically for his COPD exacerbation which has been caused by his aspiration pneumonia. Will treat with inhaled bronchodilators and mucolytics, as well as IV steroid dose and taper. (4) Back pain Chronic M54.9 - DORSALGIA, UNSPECIFIED Qualifiers: Back pain location: thoracic back pain Chronicity: chronic Back pain laterality: midline Qualified Code(s): M54.6 - Pain in thoracic spine; G89.29 - Other chronic pain Comment/Plan: Patient has had a history of back pain will monitor closely. (5) Abdominal pain Acute R10.9 - UNSPECIFIED ABDOMINAL PAIN (6) Nausea & vomiting Acute R11.2 - NAUSEA WITH VOMITING, UNSPECIFIED Qualifiers: Vomiting type: bilious vomiting Qualified Code(s): R11.14 - Bilious vomiting Comment/Plan: Possibly has gastroenteritis which prompted vomiting which led to aspiration pneumonia. The patient also feels that his coughing may have started 1st, and his severe coughing fits are so bad that they cause nausea with vomiting. Will provide antiemetics and IV fluids as needed.
[2016-10-17] MEDS: METHYLPREDNISOLONE 125 MG/2 ML VIAL IV SCH ×3 (09:00→20:01)
[2016-10-17] MEDS ORDERED: CLOPIDOGREL 75 MG TAB PO SCH (09:00)
[2016-10-17] MEDS ORDERED: METHYLPREDNISOLONE 40 MG/1 ML VIAL IV SCH (09:00)
[2016-10-17] MEDS: ACETAMINOPHEN 325 MG/TAB TABLET PO PRN (09:36)
[2016-10-17] MEDS: CEFTRIAXONE 1 GM in D5W 100 ML IV SCH (13:03)
[2016-10-17] MEDS: Levofloxacin 750 mg/150 ml D5W 750 MG/150 ML RTU IV SCH (16:17)
[2016-10-17] MEDS ORDERED: ENOXAPARIN 40 MG/0.4 ML PFS SQ SCH (18:00)
[2016-10-18] MEDS: Albuterol/Ipratropium Neb 3 ML NEB NEB SCH ×2 (02:31→07:59)
[2016-10-18 04:14] VITALS: BMI 29.1
[2016-10-18] MEDS: OXYCODONE (OxyCONTIN) 20 MG TAB PO SCH (04:28)
[2016-10-18] MEDS: PANTOPRAZOLE 40 MG TAB PO SCH (04:28)
[2016-10-18] MEDS: CLOPIDOGREL 75 MG TAB PO SCH (04:28)
[2016-10-18] MEDS: METHYLPREDNISOLONE 125 MG/2 ML VIAL IV SCH ×2 (04:29→09:30)
[2016-10-18] MEDS: SODIUM CHLORIDE 0.9% 3 ML FLUSH FLUSH SCH (04:32)
[2016-10-18 05:19] LABS: MPV 8.9 fL (7.4-10.4)
[2016-10-18 05:37] LABS: BLOOD UREA NITROGEN 12 MG/DL (9-20); CALCULATED OSMOLALITY 271 MOs/Kg (270-290); CHLORIDE 104 mEq/L (98-107); GLUCOSE 134 mg/dL (70-99); SODIUM LEVEL 140 mEq/L (137-146)
[2016-10-18] MEDS: ONDANSETRON HCL 4 MG/2 ML VIAL IV PRN (09:30)
[2016-10-18] MEDS: ACETAMINOPHEN 325 MG/TAB TABLET PO PRN (09:31)
[2016-10-18 09:39] VITALS: BP 138/80; TEMP 97.9
--- NOTE | 2016-10-18 10:59 | PCM.DCS92 ---
- Final/Secondary Discharge Diagnosis (1) Aspiration pneumonitis Acute J69.0 - PNEUMONITIS DUE TO INHALATION OF FOOD AND VOMIT Present on Admission: Yes Comment: Patient likely developed an aspiration pneumonia associated with his significant nausea and vomiting. The patient feels that his nausea vomiting caused by his significant coughing fits as well as his back pain. He was admitted to the hospital due to suspicion of aspiration pneumonia given his aforementioned symptoms as well as abnormal chest x-ray. Treat for aspiration pneumonia empirically with IV Levaquin and Rocephin. He also has a history of COPD, with some evidence of exacerbation so he will be on steroid burst and taper, as well as scheduled and p.r.n. bronchodilators and mucolytics. (2) Atypical chest pain Chronic R07.89 - OTHER CHEST PAIN Present on Admission: Yes Comment: This is chronic and intermittent patient has had cardiac catheterizations and stress tests and has not had any recent interventions due to normal testing. I do not believe that his chest pain is cardiac in origin, it has resolved completely. (3) COPD exacerbation Acute J44.1 - CHRONIC OBSTRUCTIVE PULMONARY DISEASE W (ACUTE) EXACERBATION Comment: Patient has a history of COPD and emphysema due to his long history of smoking. He is no longer an abuser of tobacco products. Will treat empirically for his COPD exacerbation which has been caused by his aspiration pneumonia. Will treat with inhaled bronchodilators and mucolytics, as well as IV steroid dose and taper. (4) Back pain Chronic M54.9 - DORSALGIA, UNSPECIFIED Present on Admission: Yes thoracic back pain chronic midline M54.6 - Pain in thoracic spine; G89.29 - Other chronic pain Comment: Patient has had a history of back pain will monitor closely. Initially , back pain got a lot better, but this morning he says that his back pain is much worse again. He feels that his back pain is so severe, as the cause of his nausea vomiting. He does have a history of chronic lower extremity pain. As such, will have the patient evaluated by physical therapy today, if they do not have any acute concerns will discharge him home today with instructions to follow up with Orthopedic surgery as an outpatient. He may be a candidate for further back is and spine imaging or intervention. Patient understands and is agreeable with this plan. (5) Abdominal pain Acute R10.9 - UNSPECIFIED ABDOMINAL PAIN (6) Nausea & vomiting Acute R11.2 - NAUSEA WITH VOMITING, UNSPECIFIED Present on Admission: Yes bilious vomiting R11.14 - Bilious vomiting Comment: Possibly has gastroenteritis which prompted vomiting which led to aspiration pneumonia. The patient also feels that his coughing may have started 1st, and his severe coughing fits are so bad that they cause nausea with vomiting. Will provide antiemetics and IV fluids as needed. In any case, his coughing and nausea are much better today. He feels ready for discharge home. Discharge Disposition: Home Discharge Condition: Stable Fuctional Discharge Status: Independent Physician Follow up/Referrals: None,No Provider [Family Provider] - One Week Home Medications / New Prescriptions: New Levofloxacin [Levaquin] 750 mg PO DAILY #5 tab Prednisone [Sterapred Ds] 10 mg PO DIR #21 pack Continue Dexlansoprazole [Dexilant] 60 mg PO DAILY Oxycodone (OxyCONTIN) Ext Rel [Oxycontin] 20 mg PO Q12H Clopidogrel Bisulfate [Plavix] 75 mg PO DAILY Aspirin [Aspirin EC] 81 mg PO QAM Buspirone HCl [Buspar] 30 mg PO BID PRN PRN Reason: ANXIETY ATTACK O2 Device: Nasal Cannula Additional Instructions: CONTINUE CURRENT MEDS Diet at Discharge: Regular Activity: No Restrictions - DC Summary Notes HPI/Notes: 56-year-old male with a history of chronic low back pain was admitted to the hospital with nausea and vomiting, as well as aspiration pneumonia. He was treated empirically with IV Rocephin and Levaquin, as well as inhaled bronchodilators and mucolytics and empiric IV steroids due to his history of COPD. He will be discharging home today on p.o. steroids and antibiotics, as well as supplemental oxygen. Please see the hospital problems and discharge problems above for details of the hospital course including diagnostics and treatment. The plan of care including medications, prognosis, follow-up including alarm symptoms for which medical care should be sought were reviewed with the patient and any available family members/caretakers. The patient is agreeable to discharge today, and all questions were answered by me to their satisfaction. Hospital Course Note:: Discharge summary on patient named RUSTY SLATER admitted to [facility] on 10/16/16 by Veronica Spence MD. Date of discharge is []. Total Time: 48 - Physical Exam Vital Signs: Last Vital Signs Temp 97.9 F 10/18/16 09:00 Pulse 73 10/18/16 09:00 Resp 18 10/18/16 09:00 BP 138/80 10/18/16 09:00 Pulse Ox 93 10/18/16 09:00 Oxygen Pulse Oxygen Saturation 93 O2 Device Nasal Cannula Oxygen Flow Rate 2 Fraction of Inspired Oxygen ( 29 FIO2) Constitutional: No apparent distress, Alert, Well nourished, Well appearing. negative: Confused, Distress Oriented to: Time, Person, Place - HEENT Head: Normal (normocephalic, atraumatic.), Other (No cervical lymphadenopathy. No supraclavicular lymphadenopathy. Neck: No palpable mass, supple , trachea midline.) Eye: Normal (pupils equal, reactive to light, and round; EOMI, Sclera white) Oropharynx: Normal (Pharynx: Moist without exudate,Gums-no swelling, No oropharyngeal lesions or erythema, Mucous membranes are dry.) Nose: No Symptoms Reported (septum midline, Nares patent, without discharge or bleeding.) - Respiratory/Cardiovascular Respiratory: Diminished. negative: Rales, Wheezes Cardiovascular: Normal - GI Auscultation: Normal (normal active sounds) Palpation: Normal (Soft,non distended,nontender. No hepatosplenomegaly.) Tenderness: Non tender (No rebound or guarding) Thomas's Sign: Negative - Musculoskeletal Back: Normal (Non-Tender) Extremities: Normal (Normal tone, DP pulses 2+ bilaterally, No cyanosis or edema bilaterally, FROM bilaterally.) - Integumentary Lymphatics: Normal (No cervical lymphadenopathy. No supraclavicular lymphadenopathy.) - Neurologic Memory Impaired: Normal Cerebellar: Normal (Babinski: toes downgoing bilaterally. Intact Finger to nose. Sensory grossly intact to light touch. Intact rapid alternating movements bilaterally. No pronator drift.) Mood Description: Normal (Fully oriented. Normal and appropriate affect.) Perception: Normal (Normal and appropriate affect.)
[2016-10-18 11:28] VITALS: PULSE 95
[2016-10-18] MEDS ORDERED: OXYCODONE (OxyCONTIN) 20 MG TAB PO SCH (18:00)
== END 2016-10-18 13:33 | disposition home or self-care (01) | DRG 178 ==
LOC: ED 05:46 → PCU 12:39
PROVIDERS: ADMIT Hospitalist; ATTEND Internal Medicine
PROC: 039C3ZZ Drainage of Left Radial Artery, Percutaneous Approach (ICD-10-PCS; principal; 2016-10-16)
DX: J69.0 Pneumonitis due to inhalation of food and vomit (principal); J44.1 Chronic obstructive pulmonary disease with (acute) exacerbation; J44.0 Chronic obstructive pulmonary disease with (acute) lower respiratory infection; M54.6 Pain in thoracic spine; G89.29 Other chronic pain; K52.9 Noninfective gastroenteritis and colitis, unspecified; I25.2 Old myocardial infarction; I25.10 Atherosclerotic heart disease of native coronary artery without angina pectoris; Z98.61 Coronary angioplasty status; I10 Essential (primary) hypertension; K21.9 Gastro-esophageal reflux disease without esophagitis; Z88.8 Allergy status to other drugs, medicaments and biological substances; Z88.1 Allergy status to other antibiotic agents; Z88.0 Allergy status to penicillin; Z91.041 Radiographic dye allergy status; Z79.899 Other long term (current) drug therapy; Z79.82 Long term (current) use of aspirin; F17.210 Nicotine dependence, cigarettes, uncomplicated; R09.02 Hypoxemia; Z23 Encounter for immunization
CPT/HCPCS: 36415; 36600; 71010; 71020; 74176; 80048; 80053; 81001; 82803; 83605; 84443; 84484; 85025; 85027; 85379; 85610; 85730; 87040; 90471; 90656; 93005; 94640; 96361; 96365; 96372; 96375; 96376; 98960; 99284; G0237; J0696; J1650; J1956; J2270; J2405; J2920; J2930; J3490; J7060; J7620